=== PATIENT | female | born 1990 | race Two or more races ===

== ENCOUNTER 2022-08-13 11:57 | Outpatient (REF) | payer OTHER, SELFPAY ==
[2022-08-13 16:04] LABS: CT PCR NOT DETECTED (Not Detect.); NG PCR NOT DETECTED (Not Detect.)
[2022-08-14 09:02] LABS: BV Int Neg Control Negative (Negative); BV Int Pos Control Positive (Positive)
== END 2022-08-13 11:58 | disposition home or self-care (01) ==
LOC: HO.LNP 11:57
PROVIDERS: Visit Provider Advanced Practice Midwife
DX: Z01.419 Encounter for gynecological examination (general) (routine) without abnormal findings (principal); Z11.3 Encounter for screening for infections with a predominantly sexual mode of transmission
CPT/HCPCS: 87480; 87491; 87510; 87591; 87660; 88142

== ENCOUNTER 2023-01-28 08:33 | Outpatient (REF) | payer OTHER, SELFPAY ==
[2023-01-28 11:28] LABS: MANUAL DIFF FLAG NO
[2023-01-28 12:08] LABS: Basophils Absolute Auto 0.1 X10*3/uL (0.0-0.2); Basophils Percent Auto 0.9 % (0-2); Eosinophils Absolute Auto 0.3 X10*3/uL (0.0-0.4); Eosinophils Percent Auto 5.4 % (0-4); Hematocrit 37.5 % (37.0-47.0); Hemoglobin 10.9 g/dl (12.0-16.0); Imm Gran Abs Auto 0.01 X10*3/uL (0.00-0.03); Imm Gran Pct Auto 0.2 % (0.0-0.4); Lymphocytes Absolute Auto 1.5 X10*3/uL (1.2-4.9); Lymphocytes Percent Auto 26.4 % (20-40); Mean Corpuscular HGB Conc 29.1 g/dl (31.0-35.0); Mean Corpuscular Hemoglobin 21.8 pg (27.0-33.0); Mean Corpuscular Volume 75.2 fL (80.0-98.0); Mean Platelet Volume 11.3 fL (9.4-12.3); Monocytes Absolute Auto 0.4 X10*3/uL (0.1-1.2); Monocytes Percent Auto 7.3 % (2-11); Neutrophils Absolute Auto 3.4 x10*3/uL (2.0-8.3); Neutrophils Percent Auto 59.8 % (45-73); Platelet Count 285 X10*3/uL (160-400); Red Blood Count 4.99 X10*6/uL (4.20-5.50); Red Cell Distribution Width 21.2 % (11.0-16.0); White Blood Count 5.8 X10*3/uL (4.8-10.8)
[2023-01-28 13:31] LABS: Alanine Aminotransferase 16 U/L (0-31); Albumin Level 4.3 g/dL (3.5-5.0); Alkaline Phosphatase 66 U/L (39-117); Anion Gap 13 (12-20); Aspartate Amino Transferase 22 U/L (5-31); Blood Urea Nitrogen 7 mg/dL (9-16); Calcium 9.4 mg/dL (8.4-10.2); Carbon Dioxide 25 mmol/L (22-29); Chloride 107 mmol/L (96-108); Cholesterol 149 mg/dL; Estimated Glomerular Filt Rate > 60; Glucose Fasting 97 mg/dL (60-99); HDL Cholesterol 64 mg/dL; LDL Cholesterol Calculated 72 mg/dl; Potassium 5.1 mmol/L (3.3-5.1); Sodium 140 mmol/L (135-145); Total Protein 7.4 g/dL (6.5-8.0); Triglycerides 69 mg/dL
[2023-01-28 13:59] LABS: Ferritin 7 ng/mL (10-122); TSH reflex Free T4 1.14 uIU/mL (0.32-4.0); Thyroid Stimulating Hormone 1.14 uIU/mL (0.32-4.0)
[2023-01-29 03:40] LABS: Syphilis Screen Nonreactive (Nonreactive)
[2023-01-29 04:26] LABS: HBc Num1 0.11 S/CO (0.00-0.79); HIV AB/AG Nonreactive (Nonreactive); HIV Num 1 0.08 S/CO (0.00-0.99); Hepatitis B Core Antibody Nonreactive (Nonreactive); ~HepC Num1 0.16 S/CO (0.00-0.79); ~Hepatitis C Antibody Nonreactive (Nonreactive)
== END 2023-01-28 08:34 | disposition home or self-care (01) ==
LOC: HO.HMGCLDS 08:33
PROVIDERS: Advanced Practice Midwife; PCP Internal Medicine; Visit Provider Internal Medicine
DX: Z00.01 Encounter for general adult medical examination with abnormal findings (principal); Z11.4 Encounter for screening for human immunodeficiency virus [HIV]; D64.9 Anemia, unspecified; E66.3 Overweight; F41.1 Generalized anxiety disorder; N92.0 Excessive and frequent menstruation with regular cycle; N92.1 Excessive and frequent menstruation with irregular cycle; Z20.2 Contact with and (suspected) exposure to infections with a predominantly sexual mode of transmission
CPT/HCPCS: 36415; 80053; 80061; 82728; 84443; 85025; 86704; 86780; 86803; 87389

== ENCOUNTER 2023-05-20 09:59 | Outpatient (AMB) | payer OTHER, SELFPAY ==
[2023-05-20 10:05] VITALS: BP 118/86; PULSE 82; O2SAT 100; BMI 28.7
--- NOTE | 2023-05-20 10:05 | A.OFFPC_ITS ---
Vital Signs 05/20/23 10:05 Height 5 ft 3 in Weight 162 lb 4 oz BMI 28.7 BP 118/86 Blood Pressure Location Lt brachial Position Sitting Pulse 82 Pulse Source Pulse Oximeter Pulse Oximetry (%) 100 Oxygen Delivery Method Room Air Intake Visit Reasons: Lab Work F/U per Dr. Kinney Allergies No Known Allergies Allergy (Verified 05/20/23 10:06) Medication List - Last Reconciled 05/20/23 by Miah Kinney MD citalopram 10 mg PO DAILY Tobacco use date assessed: 05/20/23 Dental Screening Dental Screen Date: 05/20/23 Did you have a dental visit in the last 12 months?: Yes Did you have a dental problem in the last 6 months where you did not have access to dental care?: No Was dental information given to patient?: No HPI Lab Work F/U per Dr. Kinney HPI Details Patient is 32-year-old female who was last seen June of last year and that did not come in for follow-up Patient has iron deficiency anemia secondary to excessive bleeding She has been evaluated by OBGYN who recommended control which patient declined. She is complaining of feeling dizzy when she stands up and feels tired easily Patient is due for labs order placed to be done fasting she has a physical exam appointment coming up next month Meanwhile patient is to start iron at least once a day with orange juice and also to start consuming more iron rich foods. Patient have a history of anxiety she is currently seeing a prescriber and is taking citalopram 20 mg Complaining of excessive sweating she has tried [id number] do drains which are not working Patient have a family history of same problem in mother. Dermatology referral placed. Return next month for physical examination, labs to be done before visit fasting. 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 1. Little interest or pleasure in doing things: not at all 2. Feeling down, depressed, or hopeless: not at all 3. Trouble falling or staying asleep, or sleeping too much: several days 4. Feeling tired or having little energy: not at all 5. Poor appetite or overeating: several days 6. Feeling bad about yourself - or that you are a failure or have let yourself or your family down: not at all 7. Trouble concentrating on things, such as reading the newspaper or watching television: not at all 8. Moving or speaking so slowly that other people could have noticed. Or the opposite - being so fidgety or restless that you have been moving around a lot more than usual: several days 9. Thoughts that you would be better off or of hurting yourself in some way: not at all Total score: 3 Depression Screening Interpretation: Negative 75129 - PHQ-9 Billing: Yes Source: Developed by Drs. Freddy Call, Celi France, Nathaniel Fairbanks and colleagues, with an educational brigido from [employer]. Thrive Questionnaire Date Thrive assessed: 05/20/23 I am a: Patient What is your living situation today?: I have a steady place to live Within the past 12 months, did the food you bought not last and you didn't have the money to get more?: Never true Within the past 12 months, did you worry whether your food would run out before you got money to buy more?: Never true Do you have trouble paying for medicines?: No Do you have trouble getting transportation to medical appointments?: No Do you have trouble paying your heating and electricity bill?: No Do you have trouble taking care of your child, family member or friend?: No Do you have trouble with day-to-day activities such as bathing, preparing meals, shopping, managing finances, etc.?: No Are you currently unemployed and looking for a job?: No Are you interested in more education?: No AUDIT C Alcohol Use Questionnaire (AUDIT-C) 1. How often do you have a drink containing alcohol?: Never 3. How often do you have six or more drinks on one occasion?: Never Total Score: 0 Score Reviewed/Action Taken: Yes ESTEBAN-7 AMB Questionnaire ESTEBAN-7 Date ESTEBAN - 7 assessed: 05/20/23 Feeling nervous, anxious, or on edge: 1 = Several days Not being able to stop or control worryin = Not at all Worrying too much about different things: 1 = Several days Trouble relaxin = Several days Being so restless that it is hard to sit still: 1 = Several days Becoming easily annoyed or irritable: 0 = Not at all Feeling afraid as if something awful might happen: 0 = Not at all Total ESTEBAN-7 score (0-4 normal; 5-9 mild; 10-14 moderate; 15-21 severe): 4 Source: Developed by Drs. Freddy Call, Celi France, Nathaniel Fairbanks and colleagues, with an educational brigido from [employer]. ESTEBAN-7 Assessment Billing ESTEBAN-7 Assessment Tool: ESTEBAN-7 Assessment 24768 Review of Systems Const Denies chills and Denies fever(s) ENT Denies epistaxis and Denies nasal discharge Card Denies chest pain Resp Denies chest congestion, Denies cough and Denies hemoptysis GI Denies diarrhea and Denies nausea Skin/Breast Denies rash Neuro Reports no additional complaints Psych Reports no additional complaints Endo Reports no additional complaints Physical exam (Primary Care) Vital Signs: Last Vital Signs Pulse 82 05/20/23 10:05 BP 118/86 05/20/23 10:05 Pulse Ox 100 05/20/23 10:05 Oxygen Delivery Method Room Air 05/20/23 10:05 BMI result Body Mass Index 28.7 Tobacco/Smoking Status: Tobacco use Status Tobacco use date assessed 05/20/23 05/20/23 10:08 Patient Tobacco Use Status Never used Tobacco 05/20/23 10:08 e-Cigarette/Vaping Use Never Used 05/20/23 10:08 PHQ-9: PHQ-9 Score PHQ-9: Total score 3 05/20/23 10:29 Depression Screening Interpretation: Negative Thrive Assessment: Date of Thrive Assessment Date Thrive assessed 05/20/23 05/20/23 10:27 Const General: cooperative, comfortable and no acute distress Orientation/consciousness: patient oriented x3 HENMT Head: Yes normocephalic Eyes General: appearance normal, both eyes and all related structures Neck Neck: Yes supple Resp Effort & Inspection: normal respiratory effort, no cough and no stridor Cardio Rhythm: regular rhythm Heart sounds: S1 normal heart sound present and S2 normal heart sound present Skin General skin exam: turgor normal Neuro General: patient oriented x3, tone normal and moves all extremities Extrem Right lower extremity: no edema Left lower extremity: no edema Assessment and Plan Assessment & Plan (1) Anemia: Code(s): D64.9 - Anemia, unspecified (2) Tired: Code(s): R53.83 - Other fatigue (3) Dizziness: Code(s): R42 - Dizziness and giddiness (4) Hyperhidrosis: Code(s): R61 - Generalized hyperhidrosis (5) Anxiety, generalized: Code(s): F41.1 - Generalized anxiety disorder Plan Patient is 32-year-old female who was last seen June of last year and that did not come in for follow-up Patient has iron deficiency anemia secondary to excessive bleeding She has been evaluated by OBGYN who recommended control which patient declined. She is complaining of feeling dizzy when she stands up and feels tired easily Patient is due for labs order placed to be done fasting she has a physical exam appointment coming up next month Meanwhile patient is to start iron at least once a day with orange juice and also to start consuming more iron rich foods. Patient have a history of anxiety she is currently seeing a prescriber and is taking citalopram 20 mg Complaining of excessive sweating she has tried [id number] do drains which are not working Patient have a family history of same problem in mother. Dermatology referral placed. Return next month for physical examination, labs to be done before visit fasting. Orders: Orders IRON PROFILE Today D64.9 - Anemia, unspecified Complete Blood Count Auto Diff Today D64.9 - Anemia, unspecified Vitamin B12 Today D64.9 - Anemia, unspecified, F41.1 - Generalized anxiety d isorder, R42 - Dizziness and giddiness, R53.83 - Other fatigue, R61 - Generalized hyperhidrosis Comprehensive [place]. Panel Fast Today D64.9 - Anemia, unspecified, F41.1 - Gen eralized anxiety disorder, R42 - Dizziness and giddiness, R53.83 - Other fatigue, R61 - Generalized hyperhidrosis Lipid Panel Today D64.9 - Anemia, unspecified, F41.1 - Generalized anxiety disorder, R42 - Dizziness and giddiness, R53.83 - Other fatigue, R61 - Generalized hyperhidrosis TSH reflex Free T4 Today D64.9 - Anemia, unspecified, F41.1 - Generalized anxiety disorder, R42 - Dizziness and giddiness, R53.83 - Other fatigue, R61 - Generalized hyperhidrosis Vitamin D 25-OH (D2 and D3) Today D64.9 - Anemia, unspecified, F41.1 - Generalized anxiety disorder, R42 - Dizziness and giddiness, R53.83 - Other fatigue, R61 - Generalized hyperhidrosis Referrals Dermatology Referral R61 - Generalized hyperhidrosis Medications: New ferrous sulfate 324 mg PO BID 180 tabs 0RF 90 days Coding Level of Care Code Est Pt Level 4 (47370) Diagnoses Anemia D64.9 Tired R53.83 Dizziness R42 Hyperhidrosis R61 Anxiety, generalized F41.1 Additional Codes ESTEBAN-7 Assessment Billing - ESTEBAN-7 Assessment Tool: ESTEBAN-7 Assessment 65543 ([id number])
== END 2023-05-20 10:27 | disposition home or self-care (01) ==
PROVIDERS: PCP Internal Medicine; Visit Provider Internal Medicine
DX: D64.9 Anemia, unspecified (principal); R53.83 Other fatigue; R42 Dizziness and giddiness; R61 Generalized hyperhidrosis; F41.1 Generalized anxiety disorder
CPT/HCPCS: 99214